=== PATIENT | male | born 2000 | race Caucasian/White ===

== ENCOUNTER 2024-01-21 06:03 | Emergency (ER) | payer OTHER, SELFPAY ==
[2024-01-21 06:03] VITALS: BMI 50.0
[2024-01-21 06:06] VITALS: BP 137/80
--- NOTE | 2024-01-21 06:58 | ED.GENMED ---
History of Present Illness
General
Chief Complaint: Medication Reaction
Source: patient and family (Mother)
Exam Limitations: none
Time Seen by Provider: 01/21/24 06:17
Nursing documentation reviewed up to this point in time: agreed with
Travel History
Have you had any contact with someone who has COVID-19?: No
Do you have any symptoms of coronavirus? Fever > 100 degrees, chills, cough, shortness of breath, sore throat, loss of taste or smell, muscle aches, or headache?: No
History of Present Illness
History of Present Illness:
23-year-old male with past medical history of anxiety and ADHD presents to the emergency room for evaluation of clamminess/dizziness, some tightness in his chest as well as some recent mood swings. Patient reports that he has ADHD and was started
on Vyvanse on . He took his last dose of Vyvanse at 11 AM. He says that since starting he has been sleeping very poorly and has noticed that he is having some mood swings. He says that last night he was awake and unable to sleep; at
around 3 AM he says he was smoking some medical marijuana and about 30 minutes later he had an episode where he felt somewhat clammy and dizzy, felt some mild tightness in his chest. He says that he spoke to his parents who decided to bring him to
the hospital to be assessed. He says he did have an episode of vomiting on the way to the hospital and he felt much better after this. He says his symptoms have essentially resolved by the time of my assessment. He denies any shortness of breath.
He denies any recent illness, coughing, fevers. No swelling or pain in the legs. Denies any known history of cardiac issues.
Past History
Past History
ED Past Medical History: Asthma (Sports induced); Negative HTN, Hypercholesterolemia or NIDDM
ED Past Surgical History: None
Social History
Tobacco: Non-smoker
Alcohol: Occasional
Personal: Single
Living: with family
Review of Systems
Review of Systems
All Other Systems: ROS reviewed and negative except as documented in HPI and ROS
Constitutional: Denies fever or chills
Respiratory: Denies cough or trouble breathing
Cardiac: Reports chest pain (Chest tightness) and diaphoresis; Denies palpitations
ABD/GI: Reports vomiting; Denies abdominal pain or nausea
: Denies flank pain
Musculoskeletal: Denies neck pain or back pain
Neurological: Reports dizzy; Denies headache, weakness or numbness
Psychiatric: Reports anxiety and other (Insomnia, mood swings)
Phy Exam
Physical Exam
Physical Exam:
General: Awake, alert, oriented x3; no acute distress
Head: Normocephalic, atraumatic
Eyes: Conjunctiva normal, sclera anicteric
Throat: Airway intact, handling secretions
Neck: Trachea midline, supple without meningismus
Lungs: Clear to auscultation bilaterally, no wheezing, rales, rhonchi
Heart: Regular rate and rhythm, no murmurs, gallops, or rubs
Abd: Soft, non distended, nontender
Neuro: Cranial nerves grossly intact, speech fluid
Skin: no rash
Extremities: No edema in extremities, equal pulses in all extremities
Scores
Heart Failure Risk
Heart Failure Risk Score: Not Applicable
Heart Score for Chest Pain Patients
STEMI patient?: Not applicable
Withdrawal Assessment of Alcohol
Withdrawal Assessment Completed?: Not applicable
Course
Orders/Labs/Results
Orders:
Orders
01/21/24 06:56
Electrocardiogram (*1) Urgent
Reason for Study: Chest Pain
EKG- Treatment ONCE
CR Chest - 2 Views Urgent
Comment:
Reason For Exam: chest tightness
Vital Signs
Initial and Last Documented VS:
Initial Vital Signs
Temp Pulse Resp BP Pulse Ox
36.7 C 87 20 137/80 96
01/21/24 06:06 02/24/24 06:06 01/21/24 06:06 01/21/24 06:06 01/21/24 06:06
Last Documented Vital Signs
Temp Pulse Resp BP Pulse Ox
36.7 C 87 20 137/80 99
01/21/24 06:06 01/21/24 06:06 01/21/24 06:06 01/21/24 06:06 01/21/24 06:37
MDM/Problems Addressed
Differential Diagnosis Includes:
Marijuana side effect/intoxication, cardiac dysrhythmia, pneumothorax a consideration as he was smoking prior to onset although considered less likely
MDM/Problems Addressed:
23-year-old male presents for evaluation after an episode of clamminess/dizziness, tightness in his chest that resolved after vomiting. Onset was shortly after smoking some medical marijuana for lack of sleep that he has been dealing with after
recent initiation of Vyvanse. He feels well here in the emergency room. Vital signs are normal. Physical exam is benign. Will plan to check an EKG. Will check a chest x-ray as well. Clinical history not consistent with ACS or PE�no indication
for emergent blood work at this point in time in my judgment. Suspect likely symptoms related to marijuana use tonight. It sounds like his recent mood swings and insomnia are likely related to Vyvanse we spoke about potentially stopping this
medication versus watchful waiting over the next few days to see if his side effects improved. Will monitor closely reassess after the above.
EKG reviewed shows no ischemic changes or dysrhythmia or other concerning findings. Chest x-ray reviewed shows no acute pathology. Patient remains well-appearing asymptomatic reassuring vitals. I think he is stable for discharge at this point
advised to follow-up with primary doctor will consider whether he will consider alternative to Vyvanse or continue taking this medication. Cautioned regarding marijuana use and potential side effects. All questions answered.
Chronic conditions affecting care:
ADHD, anxiety
*Radiology
Radiology exam reviewed: preliminary read by ED provider
*Pulse Oximetry
Patient hypoxic: no
*EKG
Interpreted by ED Provider?: Yes
Heart Rate: 72
Rate: normal
Rhythm: sinus
[place]: normal axis
Interval: normal interval
QRS Pattern: normal QRS
Ischemia: no ischemia
*Critical Care Note
Total Time (30-74mins, 75-104mins- exclusive of procedures): Not Applicable
Data Reviewed
Source: patient and family (Mother)
Further Testing Considered But Not Given:
Considered lab work including D-dimer and troponin but based on clinical history and exam, in my judgment no indication for emergent blood work
ED Attending Note
-
Portions of this chart may have been created with voice recognition software.� Occasional wrong word or��sound alike� substitutions may have occurred due to the inherent limitations of voice recognition software.
Discharge Plan
Departure
Patient Disposition: Home (Routine Discharge)
Date of Disposition: 01/21/24
Time of Disposition: 08:16
Patient with high blood pressure during this ER visit?: No
Discharge Problem:
Tightness in chest
Instructions: Marijuana, Medicines for attention deficit hyperactivity disorder (ADHD) in children
Referrals:
Merline Miranda DO [Family Provider] - Call in 1-3 days for appt
Activity Restrictions/Additional Instructions:
Thank you for visiting the Emergency Department at [facility].
1. Please schedule a follow up appointment as directed. Call first thing tomorrow morning to make an appointment.
2. If indicated, please take your medications as instructed and indicated on discharge paperwork.
3. If any of your symptoms do not improve, or persist, or become more severe within 6-12 hours, please return to the emergency department for further care.
4. Please return to the emergency department if you develop a headache, neck pain/stiffness, fever greater than 100.4F, chest pain, shortness of breath, persistent nausea, vomiting, slurred speech, difficulty walking, numbness/tingling, weakness,
signs of infection or any other symptoms that are worrisome to you.
Please call [phone] if you have any questions.
Interventions
Interventions:
*Risk Screen - Suicide Last Done: 01/21/24 06:06
*General Assessment Last Done: 01/21/24 06:06
*Neglect/Abuse Screening Last Done: 01/21/24 06:06
ED- Fall Risk Assessment Last Done: 01/21/24 06:06
*ED COVID-19 Vaccine History Last Done: 01/21/24 06:06
ED-Skin Assessment Last Done: 01/21/24 06:41
ED- Pulmonary Assessment Last Done: 01/21/24 06:37
ED-EENT Assessment Last Done: 01/21/24 06:39
[2024-01-21 08:32] VITALS: BP 102/57
== END 2024-01-21 08:56 | disposition home or self-care (01) ==
LOC: EMR 06:03
PROVIDERS: EMERGENCY PHYSICIAN Emergency Medicine; FAMILY PHYSICIAN Family Medicine
DX: R07.89 Other chest pain (principal); R11.10 Vomiting, unspecified; R42 Dizziness and giddiness; R61 Generalized hyperhidrosis; F41.9 Anxiety disorder, unspecified; G47.00 Insomnia, unspecified; F90.9 Attention-deficit hyperactivity disorder, unspecified type; J45.909 Unspecified asthma, uncomplicated; F12.90 Cannabis use, unspecified, uncomplicated
CPT/HCPCS: 99283; 71046; 93005

== ENCOUNTER 2024-03-28 21:33 | Inpatient (IN) | payer OTHER, SELFPAY ==
[2024-03-28 13:56] VITALS: BP 143/88
--- NOTE | 2024-03-28 17:19 | ED.GENMED ---
History of Present Illness
General
Chief Complaint: Abdominal Pain
Time Seen by Provider: 03/28/24 16:04
Travel History
Have you had any contact with someone who has COVID-19?: No
Do you have any symptoms of coronavirus? Fever > 100 degrees, chills, cough, shortness of breath, sore throat, loss of taste or smell, muscle aches, or headache?: No
History of Present Illness
History of Present Illness:
24-year-old male history of asthma, periumbilical hernia, currently on Wegovy presenting with periumbilical abdominal pain starting around 11 AM. Patient reports nausea at the time. Patient states that he felt like his hernia was bulging and was
hard. Patient states that abdominal pain has improved but still having supra periumbilical pain. Patient states he is still passing gas. Patient denies fever, chills, vomiting, diarrhea, or urinary symptoms. Patient states that he took his last
Wegovy dose yesterday and typically does not have symptoms afterwards.
Past History
Past History
ED Past Medical History: Asthma (Sports induced); Negative HTN, Hypercholesterolemia or NIDDM
ED Past Surgical History: None
Social History
Tobacco: Non-smoker
Alcohol: Occasional
Personal: Single
Living: with family
Phy Exam
Physical Exam
Physical Exam:
General: Alert, no acute distress
Head: NCAT
Eyes: clear conjunctiva
Neck: supple
Cardiac: regular rate and rhythm, no murmur
Lungs: clear to auscultation bilaterally. No wheezes, rales, or rhonchi. Speaking full unlabored sentences. No respiratory distress.
Abdomen: soft, nondistended periumbilical tenderness. no palpable hernia. no mass. no overlying skin changes. No rebound or guarding.
MSK: no lower extremity edema bilaterally. No deformity
Skin: warm, dry
Neuro: Alert and oriented x3. no focal deficits
Course
Orders/Labs/Results
Orders:
Orders
03/28/24 17:17
Metoclopramide [Reglan] 10 mg IV NOW STA
03/28/24 17:18
CT Abd/Pel (IV only)-DH only Urgent
Comment:
Reason For Exam: periumbilical pain
0.9% Sodium Chloride 500 ml [Nss] 500 ml IV BOLUS
03/28/24 17:31
Complete Blood Count/With Diff Urgent
Comprehensive Metabolic Panel Urgent
Lipase Urgent
03/28/24 17:32
Urinalysis Reflex To Culture Urgent
Date Specimen was Collected: 03/28/24
Time Specimen was Collected: 17:22
03/28/24 20:32
Admit/Transfer Patient As Directed
Co-Sign Provider:
Level of Care: Inpatient admission
Assign to:: Medical/Surgical
Physician / Group: Raad Guidry
Diagnosis: Periumbilical Hernia
Reason for Hospitalization: possible OR
Expected length of stay greater than two midnights?: Yes
ELOS- Estimated Length of Stay in days: 2
I certify the patient meets the requirements for IP care: Yes
03/28/24 20:36
Code Status As Directed
Resuscitation Status: Full Code
Abnormal Lab Results
03/28/24
17:31
RBC 4.63 L 10^6/uL
(4.70-6.10)
ALT 65 H U/L
(0-50)
03/28/24 17:31
03/28/24 17:31
Vital Signs
Initial and Last Documented VS:
Initial Vital Signs
Temp Pulse Resp BP Pulse Ox
97.7 F 82 20 143/88 97
03/28/24 13:56 03/28/24 13:56 03/28/24 13:56 03/28/24 13:56 03/28/24 13:56
Last Documented Vital Signs
Temp Pulse Resp BP Pulse Ox
97.7 F 74 18 124/86 97
03/28/24 13:56 03/28/24 18:52 03/28/24 18:52 03/28/24 18:52 03/28/24 18:52
Comment
Comment:
Patient presents to the Emergency Department with periumbilical abdominal pain
Number and Complexity of Problems Addressed at the Encounter
� Chronic conditions affecting care:
� Acute Exacerbation and/or Progression of Chronic Illness:
� Differential Diagnosis includes: appendicitis, strangulated or incarcerated hernia, gastroparesis, pancreatitis
Amount and/or Complexity of Data to be Reviewed and Analyzed
� I performed an independent evaluation of and my interpretation is:
EKG:
CT:
Xrays:
Laboratory Studies: CBC, lipase, and cmp unremarkable
Other:
� Review of other/old records reveals:
� Clinical information was obtained by an independent historian:
� Prescriptions/Medications Considered but not given:
� Further testing considered but not performed:
Risk of Complications and/or Morbidity or Mortality of Patient Management
� Social Determinants of health affecting care:
� Discussion with other providers (PCP, Hospitalists, Consultants, etc):
� Escalation of care including admission/observation vs risk of discharge considered: 23-year-old male history of periumbilical hernia presenting with periumbilical pain, nausea, decreased flatus starting around 11 AM which has since resolved. CT
abdomen pelvis shows possible focal ileus versus early/partial SBO. Discussed with Dr. Guidry, general surgery, who accepts patient to his service to take to the OR tomorrow for hernia repair.
*Critical Care Note
Total Time (30-74mins, 75-104mins- exclusive of procedures): Not Applicable
ED Attending Note
-
Portions of this chart may have been created with voice recognition software.� Occasional wrong word or��sound alike� substitutions may have occurred due to the inherent limitations of voice recognition software.
Discharge Plan
Departure
Patient Disposition: Admit
Date of Disposition: 03/28/24
Time of Disposition: 20:06
Admit to: Med/Surg
Admit to doctor: Dr. Guidry
Presentation/result/management discussed w/ accepting MD/DO: general surgery
Discharge Problem:
Supraumbilical hernia
Prescriptions:
No Action
fexofenadine 180 mg Tablet
180 mg PO DAILY
escitalopram oxalate 10 mg tablet
10 mg PO DAILY
Wegovy 0.5 mg/0.5 mL pen injector
0.5 mg SC TU
Referrals:
Merline Miranda DO [Family Provider] -
Interventions
Interventions:
*Risk Screen - Suicide Last Done: 03/28/24 13:56
*Neglect/Abuse Screening Last Done: 03/28/24 13:56
ED- Fall Risk Assessment Last Done: 03/28/24 16:51
*ED COVID-19 Vaccine History Last Done: 03/28/24 13:56
NX-Laboib-Uuhpokuqfq Assessment Last Done: 03/28/24 16:51
Discharge Date and Time
Print Language: ROMANSH
[2024-03-28] MEDS: NSS 500 IV (17:33)
[2024-03-28] MEDS: REGLAN 10 MG IV (17:34)
[2024-03-28 17:51] LABS: % Basophils 0.7 % (0-2); % Eosinophils 1.3 % (0-6); % Immature Granulocytes 0.4 % (0-0.5); % Lymphocytes 21.3 % (20.5-51.1); % Monocytes 5.2 % (1.7-9.3); % Neutrophils 71.1 % (42.2-75.2); Absolute Basophils 0.1 10^3/uL (0-0.2); Absolute Eosinophils 0.1 10^3/uL (0-0.7); Absolute Lymphocytes 1.9 10^3/uL (1.2-3.4); Absolute Monocytes 0.5 10^3/uL (0.1-0.6); Absolute Neutrophils 6.5 10^3/uL (1.4-6.5); Hematocrit 40.1 % (39.0-52.0); Mean Corp Hgb Conc. 34.9 g/dL (33.0-37.0); Mean Corpuscular Hgb 30.2 pg (27.0-31.0); Mean Corpuscular Volume 86.6 fL (80.0-94.0); Mean Platelet Volume 9.6 fL (7.4-10.4); Nucleated Red Blood Cells % 0 % (-); Platelet Count 248 10^3/uL (130-400); Red Blood Cell Count 4.63 10^6/uL (4.70-6.10); Red Cell Dist. Width 12.3 % (11.5-14.5); White Blood Cell Count 9.1 10^3/uL (4.8-10.8)
[2024-03-28 17:51] LABS: Urine Albumin Negative (Neg - Trace); Urine Bilirubin Negative (Negative); Urine Character Clear (Clear); Urine Color Yellow; Urine Glucose Negative (Negative); Urine Ketone Negative (Negative); Urine Leukocyte Negative (Negative); Urine Nitrite Negative (Negative); Urine Occult Blood Negative (Negative); Urine Urobilinogen Negative (Neg - 1+); Urine pH 6.5 (5.0-9.0)
[2024-03-28 18:03] LABS: ALT (SGPT) 65 U/L (0-50); AST (SGOT) 36 U/L (17-59); Albumin 4.6 g/dl (3.5-5.0); Alkaline Phosphatase 98 U/L (38-126); Blood Urea Nitrogen 14 mg/dl (9-20); Calcium 9.6 mg/dl (8.4-10.2); Carbon Dioxide 25 mmol/L (22-30); Chloride 106 mmol/L (98-107); Glucose 84 mg/dl (70-99); Lipase 63 U/L (23-300); Sodium 137 mmol/L (135-145); Total Bilirubin 0.5 mg/dl (0.2-1.3); Total Protein 6.9 g/dl (6.3-8.2); eGFR > 60.00
[2024-03-28 18:52] VITALS: BP 124/86
--- NOTE | 2024-03-28 21:17 | HPS.HSE ---
Addendum entered and electronically signed by Raad Guidry MD 03/29/24 07:04:
Patient seen and examined. Agree with documented history and physical which is consistent with my examination and evaluation at this time.
HPI: 23-year-old male with known supraumbilical hernia that he had been following expectantly with attempted weight loss efforts. Yesterday he developed the acute onset of pressure-like pain at his hernia with nausea and the hernia was firm,
bulging and tender to the touch. He was having chills with it as well. Presented to the emergency department for evaluation. CT imaging was obtained identifying fat-containing umbilical hernia with inflammatory changes and what appeared to be
small bowel tethered in the region. States that the hernia was able to be subsequently reduced and his symptoms have improved.
This a.m. his nausea subsided. Abdominal pain improving as well.
PMH: Exercise-induced asthma, obesity with BMI 40.6, depression/anxiety
PSH none
AFVSS
NAD AAOx3
ABD: Soft, nondistended, obese, mild tenderness to palpation periumbilically but no rebound rigidity or guarding. Palpable incarcerated supraumbilical hernia.
Assessment/plan: 23-year-old male presenting with acute incarcerated supraumbilical ventral hernia, temporary obstructive symptoms. Possible that had Jimenez's type component or small bowel tethering to the hernia sac. These obstructive symptoms
have been alleviated.
Reviewed with patient treatment options which include proceeding with operative correction at this hospitalization due to his acute event versus continued weight loss efforts and risk of future recurrent incarcerated events. Patient wishes to
pursue operative correction. Diagnostic laparoscopy to confirm that there are no small bowel adhesions or residual component of small bowel incarceration followed by open repair of ventral hernia with mesh. Anticipated operative procedure was
reviewed in detail discussing operative technique and potential operative findings with their management. Reviewed alternative treatment options, benefits and potential risk such as but not limited to bleeding, infectious or wound related
complications, iatrogenic injury to surrounding viscera. Any of the patient's concerns or questions were fully addressed and informed consent was obtained.
Patient has been added onto the OR schedule
N.p.o., IV fluids and supportive care awaiting or availability
Original Note:
Family Physician
-
Family Physician: Merline Miranda
Chief Complaint
-
'abdomen pain'
History of Present Illness
23 y/o patient with PMH of Asthma (sports induced), Periumbilical hernia, presents to ER with the c/o Abdomen pain started since 11AM, with feeling nauseous as the pain increased. Stated ' pressure like' pain was around the 'belly button' without
radiating. Reported his hernia was bulging, hard and couldn't reduce by himself like he usually does when he gets similar pain, but this time pain was more intense. States he was able to push it back on his own right before ER visit and felt much
better with out any medications. Nausea subsided with Reglan in ER. + flatus, LBM in AM, normal stool. Denies any chills, fever, abdomen pain, chest pain or shortness of breath at present. Patient has hx of hernia.
CT abd/pelvis
Slightly distended segment of small bowel in the anterior mid abdomen extending slightly to the left of midline, with air-fluid level. Possible focal ileus versus early or partial small bowel obstruction. There is the suggestion of tethering of
small bowel at the base of a supraumbilical hernia.
Medical History
Past Medical History
Past Medical History: Reports Asthma (sports induced )
Past Surgical History: Reports None
Social History
Tobacco: Non-smoker
Alcohol: Occasional
Drug: Marijuana
Personal: Single
Living: With Family
Family History
Family History: Not pertinent
Allergies / Home Medications
Allergies reflects when Allergies were last updated in [facility].
Home Medications with original date entered in [facility]
Allergy/Medication List:
Allergies
Allergy/AdvReac Type Severity Reaction Status Date / Time
No Known Allergies Allergy Verified 01/21/24 06:05
Home Medications
escitalopram oxalate 10 mg tablet 10 mg PO DAILY 03/28/24
fexofenadine 180 mg tablet 180 mg PO DAILY 03/28/24
semaglutide (weight loss) 0.5 mg/0.5 mL subcutaneous pen injector (Wegovy) 0.5 mg SC TU 03/28/24
Review of Systems
-
History Source: Patient
A 12 point ROS was completed and negative except as noted: Yes
Constitutional: Reports No Symptoms
EENT: Reports No Symptoms
Respiratory: Reports No Symptoms
Cardiac: Reports No Symptoms
Abdomen/GI: Reports Abdominal Pain (subsided at present) and Nausea (improved)
: Reports No Symptoms
Musculoskeletal: Reports No Symptoms
Skin: Reports No Symptoms
Neurological: Reports No Symptoms
Endocrine: Reports No Symptoms
Hematologic/Lymphatic: Reports No Symptoms
Psych: Reports No Symptoms
Physical Exam
Vital Signs
Vital Signs
Temp Pulse Resp BP Pulse Ox
97.7 F 74 18 124/86 97
03/28/24 13:56 03/28/24 18:52 03/28/24 18:52 03/28/24 18:52 03/28/24 18:52
Physical Exam
General: Well Developed, Well Nourished and No Apparent Distress
HEENT: NormoCephalic, Moist mucous membranes and Atraumatic
Respiratory: Clear and Non Labored Respirations
Cardiac: S1/S2 and Regular Rhythm
Breast: Deferred by me
GI: Soft, Non Distended, Normal Bowel Sounds and Tender (mild periumbilical tenderness)
Rectal: Deferred by Provider
Genito-urinary: Deferred by me
Musculoskeletal: No Clubbing, No Cyanosis and No Edema
Skin: Warm and Dry
Neuro: Awake, AO x 3 and Nonfocal/grossly intact
Hematologic/Lymphatic: No Lymphadenopathy
Psych: Calm and Intact Judgment/Insight
Laboratory Results
-
03/28/24 17:31
03/28/24 17:31
Laboratory Results
Total Bilirubin 0.5 mg/dl (0.2-1.3) 03/28/24 17:31
AST 36 U/L (17-59) 03/28/24 17:31
ALT 65 U/L (0-50) H 03/28/24 17:31
Alkaline Phosphatase 98 U/L (38-126) 03/28/24 17:31
Lipase 63 U/L (23-300) 03/28/24 17:31
Data Reviewed
-
CT Scan: Report Reviewed by me
Lab Data: Labs Reviewed by me
Impression/Plan
-
23y/o with Abdomen pain
# Acute on chronic Abdomen pain likely due to umbilical Hernia
-Admit to Dr. Guidry
-NPO after MN
-Tylenol prn for pain
-Reglan prn for nausea
-labs in AM
# Generalized Anxiety disorder
-Continue Lexapro
# Sports Induced Asthma
-not on any medications at home
-On weight loss medicine
Wegovy last dose yesterday
Full code
DVT Prophylaxis: SCD's
[2024-03-28 22:33] VITALS: BP 118/83; BMI 40.6
[2024-03-28] MEDS: TYLENOL 650 MG PO (23:19)
[2024-03-28] MEDS: MELATONIN 5 MG PO (23:19)
[2024-03-29] VITALS (8 sets, daily range): BP systolic 121–160; BP diastolic 46–89; BMI 40.6
[2024-03-29] MEDS: TYLENOL 650 MG PO (06:06)
[2024-03-29 08:22] LABS: Hematocrit 40.4 % (39.0-52.0); Hemoglobin 13.9 g/dL (13.0-18.0); Mean Corp Hgb Conc. 34.4 g/dL (33.0-37.0); Mean Corpuscular Hgb 30.1 pg (27.0-31.0); Mean Corpuscular Volume 87.4 fL (80.0-94.0); Mean Platelet Volume 9.8 fL (7.4-10.4); Platelet Count 235 10^3/uL (130-400); Red Blood Cell Count 4.62 10^6/uL (4.70-6.10); Red Cell Dist. Width 12.3 % (11.5-14.5); White Blood Cell Count 5.7 10^3/uL (4.8-10.8)
[2024-03-29 08:57] LABS: Blood Urea Nitrogen 13 mg/dl (9-20); Calcium 9.6 mg/dl (8.4-10.2); Carbon Dioxide 26 mmol/L (22-30); Chloride 106 mmol/L (98-107); Estimated Creatinine Clearance > 125 ml/min; Glucose 95 mg/dl (70-99); Potassium 4.3 mmol/L (3.5-5.1); Sodium 138 mmol/L (135-145); eGFR > 60.00
--- NOTE | 2024-03-29 11:44 | CM ---
Attempted initial assessment. Patient was in OR.
--- NOTE | 2024-03-29 11:47 | W.SUR.PREOP ---
Pre-Operative Surgical Note
-
I have examined this patient prior to the performance of the scheduled procedure.
The patient's condition is unchanged from the time of the current History and
Physical and the patient is able to undergo the scheduled procedure.
--- NOTE | 2024-03-29 11:55 | W.IMMPOSTOP ---
Addendum entered and electronically signed by Raad Guidry MD 03/29/24 12:04:
#[id number]
Original Note:
Surgical Immed Post Op Note
-
Primary Surgeon: Chao
Assisting Surgeon: None
Pre-op Diagnosis: Incarcerated ventral hernia
Post-op Diagnosis: Incarcerated ventral hernia; 1.5 cm
Procedure Performed: Diagnostic laparoscopy; open repair incarcerated ventral hernia with mesh (VentralexST 6.4 cm round)
Anesthesia Type: GETA +0.25% Marcaine
Specimen / Cultures: None
Estimated Blood Loss: 8 mm
Complications: None immediate
Operative Findings: Incarcerated ventral hernia containing preperitoneal fat and peritoneal lining. Edema and free fluid noted within hernia sac. There were no intra-abdominal adhesions or other contents of the hernia. No notable intra-abdominal
findings on diagnostic laparoscopy. Open repair incarcerated ventral hernia utilizing preperitoneal underlay Ventralex 6.4 cm round mesh with closure of the overlying fascial defect.
Plan: Routine postoperative care with anticipation of discharge home today.
Operative findings, postoperative care and follow-up discussed with patient preoperatively and his mother via phone
--- NOTE | 2024-03-29 12:05 | W.DS.TRANS ---
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
-
Discharge Instructions:
Discharge Diagnosis/Procedures Incarcerated supraumbilical ventral hernia.
Diagnostic laparoscopy, open repair incarcerated
ventral hernia with mesh
Diet As tolerated,Regular
Additional Diets Smaller meals initially after surgery as
abdominal bloating and distention may be common
for the first few days
Activity No strenuous activity
Additional Activity No lifting over 20 pounds for 4 weeks postop
Driving Restrictions No driving for 1 to 2 days or if using narcotics
Bathing Restrictions OK to Shower
Wound Care Okay to remove umbilical/hernia site Tegaderm
and gauze dressing 48 hours postop. Okay if
this dressing falls off sooner or remove if
adhesive bothering skin sooner. After remove
dressing leave skin site open to air and Steri-
Strips typically peels off in 2 to 3 weeks.
Surgical glue dressing at 2 laparoscopic sites
will peel off in 2 to 3 weeks. No additional
wound care needed.
Instructions:
Stand-Alone Forms:
Changes to Home Medications: No
Discharge Medications:
DC Medications w/original date entered in [facility]
escitalopram oxalate 10 mg tablet 10 mg PO DAILY Depression 03/28/24
fexofenadine 180 mg tablet 180 mg PO DAILY Allergies 03/28/24
semaglutide (weight loss) 0.5 mg/0.5 mL subcutaneous pen injector (Wegovy) 0.5 mg SC TU Weight Gain 03/28/24
acetaminophen 500 mg tablet (Tylenol Extra Strength) 1,000 mg (2 x 500 mg) PO Q6HPRN PRN mild pain #1 tab 03/29/24
ibuprofen 200 mg tablet 400 - 600 mg (2 - 3 x 200 mg) PO Q6HPRN PRN moderate pain #1 tab 03/29/24
oxycodone 5 mg tablet 5 mg PO Q4HPRN PRN breakthrough/severe pain #10 tabs 03/29/24
polyethylene glycol 3350 17 gram/dose oral powder (Miralax) 4 g PO DAILY PRN Constipation #119 grams 03/29/24
Home Medication Changes
Pending Results: No
--- NOTE | 2024-03-29 12:57 | CM ---
Initial assessment completed with parents, patient was in recovery. Patient lives with parents in a 2 story home with basement, 2 steps to enter, B/B on , 1/2 bath on , no DME, no in-home services, [employer] patient was independent, drove and
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 [facility] is [facility] in [place], PCP is Dr. Merline Miranda. Anticipate no needs at discharge.
--- NOTE | 2024-03-29 13:00 | PTCARENOTE ---
Pt received from the PACU via bed. Transport was w/o incident. Pt is AAOx3, HRR, lungs are clear. Abd w/ 2 lap sites well approximated w/ surgi glue and [employer] w/ guaze/tegaderm dressing C/D/I, not drainage noted. Pt denies pain or nausea at
this time. VSS, Pt is afebrile. Pt instructed on plan of care. Pt verbalized understanding of instructions. Call lennon is within reach.
[2024-03-29] MEDS: LEXAPRO 10 MG PO (13:43)
--- NOTE | 2024-03-29 16:08 | CM ---
Patient has been medically cleared for discharge to home with no additional skilled services. Parents transported home.
== END 2024-03-29 15:20 | disposition home or self-care (01) | DRG 354 ==
LOC: 2 SOUTH 21:33
PROVIDERS: Nurse Practitioner Gerontology; ADMITTING PHYSICIAN Surgery; EMERGENCY PHYSICIAN Emergency Medicine; FAMILY PHYSICIAN Family Medicine
PROC: 0WJF4ZZ Inspection of Abdominal Wall, Percutaneous Endoscopic Approach (ICD-10-PCS; 2024-03-29)
PROC: 0WUF0JZ Supplement Abdominal Wall with Synthetic Substitute, Open Approach (ICD-10-PCS; 2024-03-29)
DX: K43.6 Other and unspecified ventral hernia with obstruction, without gangrene (principal); Z68.41 Body mass index [BMI] 40.0-44.9, adult; J45.990 Exercise induced bronchospasm; R10.33 Periumbilical pain; E66.9 Obesity, unspecified; F32.A Depression, unspecified; F41.1 Generalized anxiety disorder; Z79.85 Long-term (current) use of injectable non-insulin antidiabetic drugs; Z53.31 Laparoscopic surgical procedure converted to open procedure
CPT/HCPCS: 74177; 80048; 80053; 81003; 83690; 85025; 85027; 96361; 96374; 99285; C1781; Q9967